=== PATIENT | female | born 1975 | race Caucasian/White ===

== ENCOUNTER 2019-01-01 11:19 | Observation (INO) | payer OTHER ==
[2019-01-01] MEDS ORDERED: Sodium Chloride 0.9% 1,000 ML IV ONE ×2 (11:25→13:18)
[2019-01-01] MEDS ORDERED: Ondansetron 4 MG/2 ML SDV IVPUSH ONE (11:28)
[2019-01-01] MEDS ORDERED: Ketorolac 30 MG/ML SDV IVPUSH ONE (12:00)
--- NOTE | 2019-01-01 12:00 | EDM.PDOC ---
<Chun Gallego - Last Filed: 01/01/19 13:20> ED HPI GENERAL MEDICAL PROBLEM - General Chief Complaint: Abdominal Pain Stated Complaint: abdominal pain Time Seen by Provider: 01/01/19 11:21 - History of Present Illness INITIAL COMMENTS - FREE TEXT/NARRATIVE: 43 y/o female presenting today for nausea, vomiting. States she started feeling nauseous this morning around 3 am. Denies any hematemesis. No chest pain, but complaining of subcostal pain. No dyspnea or cough. Denies any pelvic pain, dysuria, diarrhea. No new rashes or lower extremity edema. States she has some blood disorder and is taking Eliquis but she does not recall the name of her blood disorder. Denies any illicit drug use. Does Bilateral Upper Abdomen Pain Score (Numeric/FACES): 8 - Related Data Allergies Allergy/AdvReac Type Severity Reaction Status Date / Time codeine Allergy Dizziness Verified 01/01/19 11:27 Home Meds: Home Meds ALPRAZolam [Xanax] 1 mg PO PRN 01/01/19 [History] Apixaban [Eliquis] 5 mg PO DAILY 01/01/19 [History] Diltiazem HCl [Diltiazem ER] 180 mg PO DAILY 01/01/19 [History] Losartan/Hydrochlorothiazide [Losartan-HCTZ 100-25 MG] 1 tab PO DAILY 01/01/19 [ History] Past Medical History Cardiovascular History: Reports: Hypertension Gastrointestinal History: Reports: None Musculoskeletal History: Reports: None Other Hematologic History: Pt states "I have a blood disorder but they don't know what it is" - Past Surgical History Cardiovascular Surgical History: Reports: None GI Surgical History: Reports: Other (See Below) Other GI Surgeries/Procedures: Gastric Bypass Musculoskeletal Surgical History: Reports: Other (See Below) Other Musculoskeletal Surgeries/Procedures:: Left ACL repair Social & Family History - Family History Family Medical History: Noncontributory - Tobacco Use Smoking Status *Q: Current Every Day Smoker Years of Tobacco use: 20 Packs/Tins Daily: 1 - Caffeine Use Caffeine Use: Reports: Coffee - Recreational Drug Use Recreational Drug Use: No ED ROS GENERAL - Review of Systems Review Of Systems: ROS reveals no pertinent complaints other than HPI. ED EXAM, GI/ABD - Physical Exam Exam: See Below General Appearance: Alert, WD/WN, Anxious Throat/Mouth: Other (dry mucous membranes) Respiratory/Chest: No Respiratory Distress, Lungs Clear, Normal Breath Sounds, Chest Non-Tender Cardiovascular: Normal Peripheral Pulses, Regular Rate, Rhythm GI/Abdominal Exam: Normal Bowel Sounds, Soft, Other (epigastric pain, negative mccarthy's, no rebound) Back Exam: No: CVA Tenderness (L), CVA Tenderness (R) Extremities: Normal Inspection, No Pedal Edema Neurological: Alert, Oriented Course - Vital Signs Text/Narrative:: gave 1 L NS, toradol 30 mg IM once. Labs show elevated lipase 1999. Will give another 1 L NS. Gave Morphine 2mg IV once. Discussed case with Dr. Alexandra who has accepted the patient for admission. Last Recorded V/S: Last Vital Signs Temp 35.8 C 01/01/19 11:29 Pulse 63 01/01/19 12:49 Resp 17 01/01/19 12:49 BP 157/94 H 01/01/19 12:49 Pulse Ox 95 01/01/19 12:49 - Orders/Labs/Meds Orders: Active Orders 24 hr Category Date Time Status Admission Status [Patient Status] [ADT] Stat ADT 01/01/19 13:19 Active EKG Documentation Completion [RC] STAT Care 01/01/19 11:26 Active CREATINE KINASE,CK [CHEM] Stat Lab 01/01/19 13:06 Ordered GLYCOSYLATED HEMOGLOBIN,HGBA1C [CHEM] Stat Lab 01/01/19 13:13 Ordered MAGNESIUM [CHEM] Stat Lab 01/01/19 13:13 Ordered Sodium Chloride 0.9% [Normal Saline] 1,000 ml Med 01/01/19 13:18 Active IV STAT Medication Orders Sodium Chloride (Normal Saline) 1,000 mls @ 999 mls/hr IV STAT ONE Stop: 01/01/19 14:18 Labs: Laboratory Tests 01/01/19 01/01/19 01/01/19 Range/Units 11:40 11:40 11:40 WBC 10.53 (4.0-11.0) K/uL RBC 5.23 (4.30-5.90) M/uL Hgb 17.4 H (12.0-16.0) g/dL Hct 50.3 H (36.0-46.0) % MCV 96.2 (80.0-98.0) fL MCH 33.3 H (27.0-32.0) pg MCHC 34.6 (31.0-37.0) g/dL RDW Std Deviation 53.0 (28.0-62.0) fl RDW Coeff of Marah 15 (11.0-15.0) % Plt Count 214 (150-400) K/uL MPV 10.30 (7.40-12.00) fL Neut % (Auto) 69.3 (48.0-80.0) % Lymph % (Auto) 22.7 (16.0-40.0) % [place] % (Auto) 5.8 (0.0-15.0) % Eos % (Auto) 1.9 (0.0-7.0) % Baso % (Auto) 0.3 (0.0-1.5) % Neut # (Auto) 7.3 H (1.4-5.7) K/uL Lymph # (Auto) 2.4 (0.6-2.4) K/uL [place] # (Auto) 0.6 (0.0-0.8) K/uL Eos # (Auto) 0.2 (0.0-0.7) K/uL Baso # (Auto) 0.0 (0.0-0.1) K/uL Nucleated RBC % 0.0 /100WBC Nucleated RBCs # 0 K/uL Sodium (136-145) mmol/L Potassium (3.5-5.1) mmol/L Chloride (98-107) mmol/L Carbon Dioxide (21.0-32.0) mmol/L BUN (7.0-18.0) mg/dL Creatinine (0.6-1.0) mg/dL Est Cr Clr Drug Dosing mL/min Estimated GFR (MDRD) ml/min Glucose (74-106) mg/dL Calcium (8.5-10.1) mg/dL Total Bilirubin (0.2-1.0) mg/dL AST (15-37) IU/L ALT (14-63) IU/L Alkaline Phosphatase (46-116) U/L Troponin I (0.000-0.056) ng/mL Total Protein (6.4-8.2) g/dL Albumin (3.4-5.0) g/dL Globulin (2.6-4.0) g/dL Albumin/Globulin Ratio (0.9-1.6) Lipase (73-393) U/L TSH 3rd Generation (0.36-3.74) uIU/mL Urine Color DARK YELLOW Urine Appearance CLEAR Urine pH 7.5 (5.0-8.0) Ur Specific [place] 1.015 (1.001-1.035) Urine Protein TRACE H (NEGATIVE) mg/dL Urine Glucose (UA) NEGATIVE (NEGATIVE) mg/dL Urine Ketones NEGATIVE (NEGATIVE) mg/dL Urine Occult Blood TRACE-LYSED H (NEGATIVE) Urine Nitrite NEGATIVE (NEGATIVE) Urine Bilirubin NEGATIVE (NEGATIVE) Urine Urobilinogen 0.2 (<2.0) EU/dL Ur Leukocyte Esterase NEGATIVE (NEGATIVE) Urine RBC 3-5 (0-2/HPF) Urine WBC 0-3 (0-5/HPF) Ur Epithelial Cells MODERATE (NONE-FEW) Urine Bacteria 1+ H (NEGATIVE) Urine HCG, Qual NEGATIVE (NEGATIVE) Urine Opiates Screen (NEGATIVE) Ur Oxycodone Screen (NEGATIVE) Urine Methadone Screen (NEGATIVE) Ur Barbiturates Screen (NEGATIVE) Ur Phencyclidine Scrn (NEGATIVE) Ur Amphetamine Screen (NEGATIVE) U Methamphetamines Scrn (NEGATIVE) U Benzodiazepines Scrn (NEGATIVE) U Cocaine Metab Screen (NEGATIVE) U Marijuana (THC) Screen (NEGATIVE) Ethyl Alcohol mg/dL 01/01/19 01/01/19 01/01/19 Range/Units 11:40 11:40 11:40 WBC (4.0-11.0) K/uL RBC (4.30-5.90) M/uL Hgb (12.0-16.0) g/dL Hct (36.0-46.0) % MCV (80.0-98.0) fL MCH (27.0-32.0) pg MCHC (31.0-37.0) g/dL RDW Std Deviation (28.0-62.0) fl RDW Coeff of Marah (11.0-15.0) % Plt Count (150-400) K/uL MPV (7.40-12.00) fL Neut % (Auto) (48.0-80.0) % Lymph % (Auto) (16.0-40.0) % [place] % (Auto) (0.0-15.0) % Eos % (Auto) (0.0-7.0) % Baso % (Auto) (0.0-1.5) % Neut # (Auto) (1.4-5.7) K/uL Lymph # (Auto) (0.6-2.4) K/uL [place] # (Auto) (0.0-0.8) K/uL Eos # (Auto) (0.0-0.7) K/uL Baso # (Auto) (0.0-0.1) K/uL Nucleated RBC % /100WBC Nucleated RBCs # K/uL Sodium 138 (136-145) mmol/L Potassium 3.6 (3.5-5.1) mmol/L Chloride 102 (98-107) mmol/L Carbon Dioxide 24.6 (21.0-32.0) mmol/L BUN 9 (7.0-18.0) mg/dL Creatinine 0.8 (0.6-1.0) mg/dL Est Cr Clr Drug Dosing 94.76 mL/min Estimated GFR (MDRD) > 60.0 ml/min Glucose 130 H (74-106) mg/dL Calcium 9.0 (8.5-10.1) mg/dL Total Bilirubin 0.6 (0.2-1.0) mg/dL AST 22 (15-37) IU/L ALT 22 (14-63) IU/L Alkaline Phosphatase 80 (46-116) U/L Troponin I < 0.050 (0.000-0.056) ng/mL Total Protein 7.9 (6.4-8.2) g/dL Albumin 3.9 (3.4-5.0) g/dL Globulin 4.0 (2.6-4.0) g/dL Albumin/Globulin Ratio 1.0 (0.9-1.6) Lipase 2261 H (73-393) U/L TSH 3rd Generation 2.12 (0.36-3.74) uIU/mL Urine Color Urine Appearance Urine pH (5.0-8.0) Ur Specific [place] (1.001-1.035) Urine Protein (NEGATIVE) mg/dL Urine Glucose (UA) (NEGATIVE) mg/dL Urine Ketones (NEGATIVE) mg/dL Urine Occult Blood (NEGATIVE) Urine Nitrite (NEGATIVE) Urine Bilirubin (NEGATIVE) Urine Urobilinogen (<2.0) EU/dL Ur Leukocyte Esterase (NEGATIVE) Urine RBC (0-2/HPF) Urine WBC (0-5/HPF) Ur Epithelial Cells (NONE-FEW) Urine Bacteria (NEGATIVE) Urine HCG, Qual (NEGATIVE) Urine Opiates Screen NEGATIVE (NEGATIVE) Ur Oxycodone Screen NEGATIVE (NEGATIVE) Urine Methadone Screen NEGATIVE (NEGATIVE) Ur Barbiturates Screen NEGATIVE (NEGATIVE) Ur Phencyclidine Scrn NEGATIVE (NEGATIVE) Ur Amphetamine Screen POSITIVE (NEGATIVE) U Methamphetamines Scrn NEGATIVE (NEGATIVE) U Benzodiazepines Scrn NEGATIVE (NEGATIVE) U Cocaine Metab Screen NEGATIVE (NEGATIVE) U Marijuana (THC) Screen NEGATIVE (NEGATIVE) Ethyl Alcohol <3 mg/dL Meds: Medications Generic Name Dose Route Start Last Admin Trade Name Freq PRN Reason Stop Dose Admin Sodium Chloride 1,000 mls @ 999 mls/hr 01/01/19 13:18 Normal Saline IV 01/01/19 14:18 STAT ONE Discontinued Medications Generic Name Dose Route Start Last Admin Trade Name Freq PRN Reason Stop Dose Admin Sodium Chloride 1,000 mls @ 999 mls/hr 01/01/19 11:25 01/01/19 11:52 Normal Saline IV 01/01/19 12:25 999 mls/hr STAT ONE Administration Ketorolac Tromethamine 30 mg 01/01/19 12:00 01/01/19 12:18 Toradol IVPUSH 01/01/19 12:01 30 mg ONETIME ONE Administration Morphine Sulfate 2 mg 01/01/19 13:14 Morphine IVPUSH 01/01/19 13:15 ONETIME ONE Ondansetron HCl 4 mg 01/01/19 11:28 01/01/19 11:52 Zofran IVPUSH 01/01/19 11:29 4 mg ONETIME ONE Administration Departure - Departure Time of Disposition: 13:23 Disposition: Refer to Observation Clinical Impression: Pancreatitis - Discharge Information *PRESCRIPTION DRUG MONITORING PROGRAM REVIEWED*: Not Applicable *COPY OF PRESCRIPTION DRUG MONITORING REPORT IN PATIENT ANGELA: Not Applicable Referrals: PCP,None [Primary Care Provider] - Forms: ED Department Discharge <Carolyn Villagran - Last Filed: 01/01/19 13:28> ED HPI GENERAL MEDICAL PROBLEM - History of Present Illness INITIAL COMMENTS - FREE TEXT/NARRATIVE: The second Sparkle dictating addendum note as I am the supervising physician on this case. I agree with history and physical as above and on my personal evaluation she does not have any discrete tenderness in the upper abdominal areas on deep palpation and is very soft but she does make a face and say that is uncomfortable. She is an obese female but there is no surgical rebound or guarding. She says she only had 2 alcoholic drinks yesterday and drank a lot of water and she denies any food intolerance. She has a very odd a fact on my questioning and seems somewhat annoyed with my questions. Her vital signs were noted by me and the workup was discussed. She is not sure of the blood disorder that she has for which she needs to take liquids on a daily basis. On visual inspection aside from the patient with demeanor as described in the prior sentence she has telangiectasia on her cheeks and has an overall brad appearance to her face. Mucosa is slightly tacky. We will follow-up workup as ordered and disposition pending those results. All testing results have been reviewed and they have been discussed by the resident with the patient. She says that she has taken phentermine which would explain her drug screen. Case was discussed with Dr. Alexandra who agrees with observation admission for pancreatitis and does not want a CT scan at this time. Impression pancreatitis ED ROS GENERAL - Review of Systems Review Of Systems: ROS reveals no pertinent complaints other than HPI. ED EXAM, GI/ABD - Physical Exam Exam: See Below (see Dictation) Departure - Departure Condition: Good
[2019-01-01 12:34] LABS: CHLORIDE,CL 102 mmol/L (98-107); SODIUM,NA 138 mmol/L (136-145)
[2019-01-01] MEDS ORDERED: Morphine 2 MG/ML Syringe IVPUSH ONE (13:14)
--- NOTE | 2019-01-01 13:21 | CR ---
Indication: Chest pain and shortness of breath Technique: Chest 2 views Comparison: None Findings: Cardiovascular and mediastinum: Heart size and vasculature are normal in caliber and appearance. Lungs and pleural spaces: Lungs are clear. No sign of infiltrate or mass. No sign of pleural effusion. No pneumothorax. Bones and soft tissues: No significant findings. Impression: No acute or significant findings. Dictated by Benson Sherman MD @ Jan 01 2019 1:19PM Signed by Dr. Benson Sherman @ Jan 01 2019 1:20PM
[2019-01-01 13:43] LABS: HEMOGLOBIN A1C 5.7 % (4.5-6.2)
[2019-01-01] MEDS ORDERED: Morphine 4 MG/ML Syringe IVPUSH PRN (13:54)
[2019-01-01] MEDS ORDERED: Ondansetron 4 MG/2 ML SDV IVPUSH PRN (13:55)
[2019-01-01] MEDS ORDERED: Sodium Chloride 0.9% 1,000 ML IV SCH ×3 (14:00→15:45)
[2019-01-01] MEDS: HYDROmorphone 1 MG/ML Syringe IVPUSH PRN ×4 (14:47→21:56)
--- NOTE | 2019-01-01 14:54 | PCM.HP ---
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 She report this pain started this morning around 0300. She denies fevers or chills, no chest pain or SOB. No urinary symptoms or diarrhea. She reports drinking alcohol last night, 1 and 12 [place] hard lemonades , otherwise she doesn't drink often. She reports having her gallbladder, no history of gallstones or infections. She reports she had pancreatitis in the past with similar workup and they were unsure of why it happened. At time she is very open with history other times she seems distant and not willing to talk. Reports a lot of her health troubles could be stemming from mold infestation in her home in [place]. She also had gastric bypass in [place], but continues to have issues with obesity since. In the ED Hgb 17.4, platelets 214/ BMP WNL. Troponin negative. Lipase 2261. CXR negative. She was given NS 2 L bolus in the ED. BP elevated slightly at 140-150/ 90s. She was given Morphine for pain and Zofran for nausea. Will be admitted for acute pancreatitis. PCP, Dr Ledesma. Bilateral Upper Abdomen Pain Score (Numeric/FACES): 8 - Related Data Allergies/Adverse Reactions: Allergies Allergy/AdvReac Type Severity Reaction Status Date / Time codeine Allergy Dizziness Verified 01/01/19 11:27 Home Medications: Home Meds ALPRAZolam [Xanax] 1 mg PO PRN 01/01/19 [History] Apixaban [Eliquis] 5 mg PO DAILY 01/01/19 [History] Diltiazem HCl [Diltiazem ER] 180 mg PO DAILY 01/01/19 [History] Losartan/Hydrochlorothiazide [Losartan-HCTZ 100-25 MG] 1 tab PO DAILY 01/01/19 [ History] Past Medical History Cardiovascular History: Reports: Hypertension. Denies: Blood Clots/VTE/DVT, CAD , High Cholesterol, MD Respiratory History: Denies: COPD, PE Gastrointestinal History: Reports: None Musculoskeletal History: Reports: None Endocrine/Metabolic History: Reports: Obesity/BMI 30+. Denies: Diabetes, Type II Other Hematologic History: Leukoclastic vasculitis - Past Surgical History Cardiovascular Surgical History: Reports: None GI Surgical History: Reports: Other (See Below) Other GI Surgeries/Procedures: Gastric Bypass Musculoskeletal Surgical History: Reports: Other (See Below) Other Musculoskeletal Surgeries/Procedures:: Left ACL repair Social & Family History - Family History Family Medical History: Noncontributory - Tobacco Use Smoking Status *Q: Current Every Day Smoker Years of Tobacco use: 20 Packs/Tins Daily: 1 - Caffeine Use Caffeine Use: Reports: Coffee - Alcohol Use Alcohol Use Frequency: Rarely, Socially - Recreational Drug Use Recreational Drug Use: No H&P Review of Systems - Review of Systems: Review Of Systems: See Below General: Denies: Fever, Chills, Malaise HEENT: Reports: No Symptoms. Denies: Headaches, Sinus Congestion Pulmonary: Reports: No Symptoms. Denies: Shortness of Breath Cardiovascular: Reports: No Symptoms. Denies: Chest Pain, Edema, Lightheadedness Gastrointestinal: Reports: Abdominal Pain (radiates to back, back hurts worse), Decreased Appetite, Nausea, Vomiting. Denies: Black Stool, Bloody Stool, Diarrhea, Melena Genitourinary: Reports: Flank Pain. Denies: Dysuria, Frequency, Burning Skin: Reports: No Symptoms Psychiatric: Reports: No Symptoms Neurological: Reports: No Symptoms Hematologic/Lymphatic: Reports: No Symptoms Immunologic: Reports: No Symptoms Exam - Exam Exam: See Below - Vital Signs Vital Signs: Last Vital Signs Temp 96.4 F 01/01/19 11:29 Pulse 62 01/01/19 13:47 Resp 18 01/01/19 13:47 BP 148/93 H 01/01/19 13:47 Pulse Ox 98 01/01/19 13:47 Weight: 122.47 kg - Exam General: Alert, Oriented, Cooperative Lungs: Clear to Auscultation, Normal Respiratory Effort Cardiovascular: Regular Rate, Regular Rhythm, Normal S1, Normal S2 GI/Abdominal Exam: Normal Bowel Sounds, Soft, Tender (mild flank tenderness, no epigastric pain. rpeorts all over discomfort) Extremities: Normal Inspection, Normal Range of Motion, Non-Tender, Pedal Edema (+1 pitting edema BLE, chronic) Neurological: Cranial Nerves Intact Neuro Extensive - Mental Status: Alert, Oriented x3, Normal Mood/Affect Neuro Extensive - Motor, Sensory, Reflexes: CN II-XII Intact Psychiatric: Alert, Normal Affect, Normal Mood - Patient Data Lab Results Last 24 hrs: Laboratory Results - last 24 hr 01/01/19 01/01/19 01/01/19 Range/Units 11:40 11:40 11:40 WBC 10.53 (4.0-11.0) K/uL RBC 5.23 (4.30-5.90) M/uL Hgb 17.4 H (12.0-16.0) g/dL Hct 50.3 H (36.0-46.0) % MCV 96.2 (80.0-98.0) fL MCH 33.3 H (27.0-32.0) pg MCHC 34.6 (31.0-37.0) g/dL RDW Std Deviation 53.0 (28.0-62.0) fl RDW Coeff of Marah 15 (11.0-15.0) % Plt Count 214 (150-400) K/uL MPV 10.30 (7.40-12.00) fL Neut % (Auto) 69.3 (48.0-80.0) % Lymph % (Auto) 22.7 (16.0-40.0) % [place] % (Auto) 5.8 (0.0-15.0) % Eos % (Auto) 1.9 (0.0-7.0) % Baso % (Auto) 0.3 (0.0-1.5) % Neut # (Auto) 7.3 H (1.4-5.7) K/uL Lymph # (Auto) 2.4 (0.6-2.4) K/uL [place] # (Auto) 0.6 (0.0-0.8) K/uL Eos # (Auto) 0.2 (0.0-0.7) K/uL Baso # (Auto) 0.0 (0.0-0.1) K/uL Nucleated RBC % 0.0 /100WBC Nucleated RBCs # 0 K/uL Sodium (136-145) mmol/L Potassium (3.5-5.1) mmol/L Chloride (98-107) mmol/L Carbon Dioxide (21.0-32.0) mmol/L BUN (7.0-18.0) mg/dL Creatinine (0.6-1.0) mg/dL Est Cr Clr Drug Dosing mL/min Estimated GFR (MDRD) ml/min Glucose (74-106) mg/dL Hemoglobin A1c (4.5-6.2) % Calcium (8.5-10.1) mg/dL Magnesium (1.8-2.4) mg/dL Total Bilirubin (0.2-1.0) mg/dL AST (15-37) IU/L ALT (14-63) IU/L Alkaline Phosphatase (46-116) U/L Creatine Kinase (26-308) U/L Troponin I (0.000-0.056) ng/mL Total Protein (6.4-8.2) g/dL Albumin (3.4-5.0) g/dL Globulin (2.6-4.0) g/dL Albumin/Globulin Ratio (0.9-1.6) Triglycerides (0-200) mg/dL Cholesterol (50-200) mg/dL LDL Cholesterol, Calc (60-180) mg/dL VLDL Cholesterol (5-55) mg/dL HDL Cholesterol (40-60) mg/dL Cholesterol/HDL Ratio (3.3-6.0) Lipase (73-393) U/L TSH 3rd Generation (0.36-3.74) uIU/mL Urine Color DARK YELLOW Urine Appearance CLEAR Urine pH 7.5 (5.0-8.0) Ur Specific [place] 1.015 (1.001-1.035) Urine Protein TRACE H (NEGATIVE) mg/dL Urine Glucose (UA) NEGATIVE (NEGATIVE) mg/dL Urine Ketones NEGATIVE (NEGATIVE) mg/dL Urine Occult Blood TRACE-LYSED H (NEGATIVE) Urine Nitrite NEGATIVE (NEGATIVE) Urine Bilirubin NEGATIVE (NEGATIVE) Urine Urobilinogen 0.2 (<2.0) EU/dL Ur Leukocyte Esterase NEGATIVE (NEGATIVE) Urine RBC 3-5 (0-2/HPF) Urine WBC 0-3 (0-5/HPF) Ur Epithelial Cells MODERATE (NONE-FEW) Urine Bacteria 1+ H (NEGATIVE) Urine HCG, Qual NEGATIVE (NEGATIVE) Urine Opiates Screen (NEGATIVE) Ur Oxycodone Screen (NEGATIVE) Urine Methadone Screen (NEGATIVE) Ur Barbiturates Screen (NEGATIVE) Ur Phencyclidine Scrn (NEGATIVE) Ur Amphetamine Screen (NEGATIVE) U Methamphetamines Scrn (NEGATIVE) U Benzodiazepines Scrn (NEGATIVE) U Cocaine Metab Screen (NEGATIVE) U Marijuana (THC) Screen (NEGATIVE) Ethyl Alcohol mg/dL 01/01/19 01/01/19 01/01/19 Range/Units 11:40 11:40 11:40 WBC (4.0-11.0) K/uL RBC (4.30-5.90) M/uL Hgb (12.0-16.0) g/dL Hct (36.0-46.0) % MCV (80.0-98.0) fL MCH (27.0-32.0) pg MCHC (31.0-37.0) g/dL RDW Std Deviation (28.0-62.0) fl RDW Coeff of [place] (11.0-15.0) % Plt Count (150-400) K/uL MPV (7.40-12.00) fL Neut % (Auto) (48.0-80.0) % Lymph % (Auto) (16.0-40.0) % [place] % (Auto) (0.0-15.0) % Eos % (Auto) (0.0-7.0) % Baso % (Auto) (0.0-1.5) % Neut # (Auto) (1.4-5.7) K/uL Lymph # (Auto) (0.6-2.4) K/uL [place] # (Auto) (0.0-0.8) K/uL Eos # (Auto) (0.0-0.7) K/uL Baso # (Auto) (0.0-0.1) K/uL Nucleated RBC % /100WBC Nucleated RBCs # K/uL Sodium 138 (136-145) mmol/L Potassium 3.6 (3.5-5.1) mmol/L Chloride 102 (98-107) mmol/L Carbon Dioxide 24.6 (21.0-32.0) mmol/L BUN 9 (7.0-18.0) mg/dL Creatinine 0.8 (0.6-1.0) mg/dL Est Cr Clr Drug Dosing 94.76 mL/min Estimated GFR (MDRD) > 60.0 ml/min Glucose 130 H (74-106) mg/dL Hemoglobin A1c (4.5-6.2) % Calcium 9.0 (8.5-10.1) mg/dL Magnesium (1.8-2.4) mg/dL Total Bilirubin 0.6 (0.2-1.0) mg/dL AST 22 (15-37) IU/L ALT 22 (14-63) IU/L Alkaline Phosphatase 80 (46-116) U/L Creatine Kinase (26-308) U/L Troponin I < 0.050 (0.000-0.056) ng/mL Total Protein 7.9 (6.4-8.2) g/dL Albumin 3.9 (3.4-5.0) g/dL Globulin 4.0 (2.6-4.0) g/dL Albumin/Globulin Ratio 1.0 (0.9-1.6) Triglycerides (0-200) mg/dL Cholesterol (50-200) mg/dL LDL Cholesterol, Calc (60-180) mg/dL VLDL Cholesterol (5-55) mg/dL HDL Cholesterol (40-60) mg/dL Cholesterol/HDL Ratio (3.3-6.0) Lipase 2261 H (73-393) U/L TSH 3rd Generation 2.12 (0.36-3.74) uIU/mL Urine Color Urine Appearance Urine pH (5.0-8.0) Ur Specific [place] (1.001-1.035) Urine Protein (NEGATIVE) mg/dL Urine Glucose (UA) (NEGATIVE) mg/dL Urine Ketones (NEGATIVE) mg/dL Urine Occult Blood (NEGATIVE) Urine Nitrite (NEGATIVE) Urine Bilirubin (NEGATIVE) Urine Urobilinogen (<2.0) EU/dL Ur Leukocyte Esterase (NEGATIVE) Urine RBC (0-2/HPF) Urine WBC (0-5/HPF) Ur Epithelial Cells (NONE-FEW) Urine Bacteria (NEGATIVE) Urine HCG, Qual (NEGATIVE) Urine Opiates Screen NEGATIVE (NEGATIVE) Ur Oxycodone Screen NEGATIVE (NEGATIVE) Urine Methadone Screen NEGATIVE (NEGATIVE) Ur Barbiturates Screen NEGATIVE (NEGATIVE) Ur Phencyclidine Scrn NEGATIVE (NEGATIVE) Ur Amphetamine Screen POSITIVE (NEGATIVE) U Methamphetamines Scrn NEGATIVE (NEGATIVE) U Benzodiazepines Scrn NEGATIVE (NEGATIVE) U Cocaine Metab Screen NEGATIVE (NEGATIVE) U Marijuana (THC) Screen NEGATIVE (NEGATIVE) Ethyl Alcohol <3 mg/dL 01/01/19 01/01/19 01/01/19 Range/Units 11:40 11:40 11:40 WBC (4.0-11.0) K/uL RBC (4.30-5.90) M/uL Hgb (12.0-16.0) g/dL Hct (36.0-46.0) % MCV (80.0-98.0) fL MCH (27.0-32.0) pg MCHC (31.0-37.0) g/dL RDW Std Deviation (28.0-62.0) fl RDW Coeff of [place] (11.0-15.0) % Plt Count (150-400) K/uL MPV (7.40-12.00) fL Neut % (Auto) (48.0-80.0) % Lymph % (Auto) (16.0-40.0) % [place] % (Auto) (0.0-15.0) % Eos % (Auto) (0.0-7.0) % Baso % (Auto) (0.0-1.5) % Neut # (Auto) (1.4-5.7) K/uL Lymph # (Auto) (0.6-2.4) K/uL [place] # (Auto) (0.0-0.8) K/uL Eos # (Auto) (0.0-0.7) K/uL Baso # (Auto) (0.0-0.1) K/uL Nucleated RBC % /100WBC Nucleated RBCs # K/uL Sodium (136-145) mmol/L Potassium (3.5-5.1) mmol/L Chloride (98-107) mmol/L Carbon Dioxide (21.0-32.0) mmol/L BUN (7.0-18.0) mg/dL Creatinine (0.6-1.0) mg/dL Est Cr Clr Drug Dosing mL/min Estimated GFR (MDRD) ml/min Glucose (74-106) mg/dL Hemoglobin A1c 5.7 (4.5-6.2) % Calcium (8.5-10.1) mg/dL Magnesium 1.9 (1.8-2.4) mg/dL Total Bilirubin (0.2-1.0) mg/dL AST (15-37) IU/L ALT (14-63) IU/L Alkaline Phosphatase (46-116) U/L Creatine Kinase 80 (26-308) U/L Troponin I (0.000-0.056) ng/mL Total Protein (6.4-8.2) g/dL Albumin (3.4-5.0) g/dL Globulin (2.6-4.0) g/dL Albumin/Globulin Ratio (0.9-1.6) Triglycerides (0-200) mg/dL Cholesterol (50-200) mg/dL LDL Cholesterol, Calc (60-180) mg/dL VLDL Cholesterol (5-55) mg/dL HDL Cholesterol (40-60) mg/dL Cholesterol/HDL Ratio (3.3-6.0) Lipase (73-393) U/L TSH 3rd Generation (0.36-3.74) uIU/mL Urine Color Urine Appearance Urine pH (5.0-8.0) Ur Specific [place] (1.001-1.035) Urine Protein (NEGATIVE) mg/dL Urine Glucose (UA) (NEGATIVE) mg/dL Urine Ketones (NEGATIVE) mg/dL Urine Occult Blood (NEGATIVE) Urine Nitrite (NEGATIVE) Urine Bilirubin (NEGATIVE) Urine Urobilinogen (<2.0) EU/dL Ur Leukocyte Esterase (NEGATIVE) Urine RBC (0-2/HPF) Urine WBC (0-5/HPF) Ur Epithelial Cells (NONE-FEW) Urine Bacteria (NEGATIVE) Urine HCG, Qual (NEGATIVE) Urine Opiates Screen (NEGATIVE) Ur Oxycodone Screen (NEGATIVE) Urine Methadone Screen (NEGATIVE) Ur Barbiturates Screen (NEGATIVE) Ur Phencyclidine Scrn (NEGATIVE) Ur Amphetamine Screen (NEGATIVE) U Methamphetamines Scrn (NEGATIVE) U Benzodiazepines Scrn (NEGATIVE) U Cocaine Metab Screen (NEGATIVE) U Marijuana (THC) Screen (NEGATIVE) Ethyl Alcohol mg/dL 01/01/19 Range/Units 11:40 WBC (4.0-11.0) K/uL RBC (4.30-5.90) M/uL Hgb (12.0-16.0) g/dL Hct (36.0-46.0) % MCV (80.0-98.0) fL MCH (27.0-32.0) pg MCHC (31.0-37.0) g/dL RDW Std Deviation (28.0-62.0) fl RDW Coeff of [place] (11.0-15.0) % Plt Count (150-400) K/uL MPV (7.40-12.00) fL Neut % (Auto) (48.0-80.0) % Lymph % (Auto) (16.0-40.0) % [place] % (Auto) (0.0-15.0) % Eos % (Auto) (0.0-7.0) % Baso % (Auto) (0.0-1.5) % Neut # (Auto) (1.4-5.7) K/uL Lymph # (Auto) (0.6-2.4) K/uL [place] # (Auto) (0.0-0.8) K/uL Eos # (Auto) (0.0-0.7) K/uL Baso # (Auto) (0.0-0.1) K/uL Nucleated RBC % /100WBC Nucleated RBCs # K/uL Sodium (136-145) mmol/L Potassium (3.5-5.1) mmol/L Chloride (98-107) mmol/L Carbon Dioxide (21.0-32.0) mmol/L BUN (7.0-18.0) mg/dL Creatinine (0.6-1.0) mg/dL Est Cr Clr Drug Dosing mL/min Estimated GFR (MDRD) ml/min Glucose (74-106) mg/dL Hemoglobin A1c (4.5-6.2) % Calcium (8.5-10.1) mg/dL Magnesium (1.8-2.4) mg/dL Total Bilirubin (0.2-1.0) mg/dL AST (15-37) IU/L ALT (14-63) IU/L Alkaline Phosphatase (46-116) U/L Creatine Kinase (26-308) U/L Troponin I (0.000-0.056) ng/mL Total Protein (6.4-8.2) g/dL Albumin (3.4-5.0) g/dL Globulin (2.6-4.0) g/dL Albumin/Globulin Ratio (0.9-1.6) Triglycerides 78 (0-200) mg/dL Cholesterol 134 (50-200) mg/dL LDL Cholesterol, Calc 59 L (60-180) mg/dL VLDL Cholesterol 15 (5-55) mg/dL HDL Cholesterol 59 (40-60) mg/dL Cholesterol/HDL Ratio 2.3 L (3.3-6.0) Lipase (73-393) U/L TSH 3rd Generation (0.36-3.74) uIU/mL Urine Color Urine Appearance Urine pH (5.0-8.0) Ur Specific [place] (1.001-1.035) Urine Protein (NEGATIVE) mg/dL Urine Glucose (UA) (NEGATIVE) mg/dL Urine Ketones (NEGATIVE) mg/dL Urine Occult Blood (NEGATIVE) Urine Nitrite (NEGATIVE) Urine Bilirubin (NEGATIVE) Urine Urobilinogen (<2.0) EU/dL Ur Leukocyte Esterase (NEGATIVE) Urine RBC (0-2/HPF) Urine WBC (0-5/HPF) Ur Epithelial Cells (NONE-FEW) Urine Bacteria (NEGATIVE) Urine HCG, Qual (NEGATIVE) Urine Opiates Screen (NEGATIVE) Ur Oxycodone Screen (NEGATIVE) Urine Methadone Screen (NEGATIVE) Ur Barbiturates Screen (NEGATIVE) Ur Phencyclidine Scrn (NEGATIVE) Ur Amphetamine Screen (NEGATIVE) U Methamphetamines Scrn (NEGATIVE) U Benzodiazepines Scrn (NEGATIVE) U Cocaine Metab Screen (NEGATIVE) U Marijuana (THC) Screen (NEGATIVE) Ethyl Alcohol mg/dL Result Diagrams: 01/01/19 11:40 01/01/19 11:40 - Problem List (1) Pancreatitis SNOMED Code(s): 12956892 ICD Code: K85.90 - ACUTE PANCREATITIS WITHOUT NECROSIS OR INFECTION, UNSP Status: Acute Current Visit: Yes Qualifiers: Chronicity: acute Pancreatitis type: idiopathic Acute pancreatitis complication: no infection or necrosis Qualified Code(s): K85.00 - Idiopathic acute pancreatitis without necrosis or infection (2) HTN (hypertension) SNOMED Code(s): 69449776 ICD Code: I10 - ESSENTIAL (PRIMARY) HYPERTENSION Status: Chronic Current Visit: Yes (3) Vasculitis determined by biopsy of skin SNOMED Code(s): 39596794, 206023913 ICD Code: I77.6 - ARTERITIS, UNSPECIFIED Status: Chronic Current Visit: Yes (4) Hx of gastric bypass SNOMED Code(s): 669152802 ICD Code: Z98.84 - BARIATRIC SURGERY STATUS Status: Chronic Current Visit : Yes (5) Smoker SNOMED Code(s): 68241366 ICD Code: F17.200 - NICOTINE DEPENDENCE, UNSPECIFIED, UNCOMPLICATED Status : Chronic Current Visit: Yes Problem List Initiated/Reviewed/Updated: Yes Orders Last 24hrs: Active Orders 24 hr Category Date Time Status Admission Status [Patient Status] [ADT] Stat ADT 01/01/19 13:19 Active EKG Documentation Completion [RC] STAT Care 01/01/19 11:26 Active Intake and Output [RC] QSHIFT Care 01/01/19 13:53 Active May Shower [RC] ASDIRECTED Care 01/01/19 13:52 Active Oxygen Therapy [RC] PRN Care 01/01/19 13:52 Active Up With Assistance [RC] ASDIRECTED Care 01/01/19 13:52 Active VTE/DVT Education [RC] PER UNIT ROUTINE Care 01/01/19 13:52 Active Vital Signs [RC] Q4H Care 01/01/19 13:52 Active NPO [Nothing Per Oral Diet] [DIET] Diet 01/01/19 Lunch Active Abdomen Comp [US] Urgent Exams 01/01/19 13:55 Ordered CBC WITH AUTO DIFF [HEME] AM Lab 01/02/19 05:11 Ordered CBC WITH AUTO DIFF [HEME] AM Lab 01/03/19 05:11 Ordered CBC WITH AUTO DIFF [HEME] AM Lab 01/04/19 05:11 Ordered COMPREHENSIVE METABOLIC PN,CMP [CHEM] AM Lab 01/02/19 05:11 Ordered COMPREHENSIVE METABOLIC PN,CMP [CHEM] AM Lab 01/03/19 05:11 Ordered COMPREHENSIVE METABOLIC PN,CMP [CHEM] AM Lab 01/04/19 05:11 Ordered LIPASE [CHEM] AM Lab 01/02/19 05:11 Ordered Apixaban [Eliquis] Med 01/01/19 21:00 Ordered 5 mg PO BID HYDROmorphone [Dilaudid] Med 01/01/19 14:17 Ordered 0.5 mg IVPUSH Q2H PRN Ondansetron [Zofran] Med 01/01/19 13:55 Active 4 mg IVPUSH Q4H PRN Sodium Chloride 0.9% [Normal Saline] 1,000 ml Med 01/01/19 14:27 Ordered IV ASDIRECTED Sodium Chloride 0.9% [Normal Saline] 1,000 ml Med 01/01/19 14:00 Active IV BOLUS Resuscitation Status Routine Resus Stat 01/01/19 13:52 Ordered Medication Orders Apixaban (Eliquis) 5 mg PO BID CECILIA Hydromorphone HCl (Dilaudid) 0.5 mg IVPUSH Q2H PRN PRN Reason: Pain Sodium Chloride (Normal Saline) 1,000 mls @ 999 mls/hr IV BOLUS CECILIA Sodium Chloride (Normal Saline) 1,000 mls @ 175 mls/hr IV ASDIRECTED CECILIA Ondansetron HCl (Zofran) 4 mg IVPUSH Q4H PRN PRN Reason: Nausea Assessment/Plan Comment:: This 43 year old female admitted with acute pancreatitis 1. Acute pancreatitis: Doesn't drink alcohol much. Triglycerides WNL. Will obtain RUQ US to rule out cholelithiasis. Give 1 more liter of NS now, total of 3 L since arrival to ED. Then NS 175. Monitor. Reports Morphine makes abdominal pain worse, will change to Dilaudid 0.5 mg and Zofran for nausea PRN. Repeat labwork in am. Bowel rest. UA positive for amphetamines, reports taking phentermine for weight loss. Last time she took this was Friday. Consider drug induced, recently restarted taking HCTZ for HTN. 2. Vasculitis: Continue Eliquis with sip of water BID. Monitor. 3. HTN: Stable currently. Will monitor. Hold oral medications for now. VTE prophylaxis: Eliquis Dispo: 2-3 days pending improvement.
[2019-01-01] MEDS: Sodium Chloride 0.9% 1,000 ML IV SCH ×2 (16:46→22:04)
--- NOTE | 2019-01-01 17:19 | US ---
INDICATION: Pancreatitis evaluate for stones. Right upper quadrant ultrasound. No comparison studies are available Findings: 1.9 cm hypoechoic area near the pancreatic head is nonspecific and could represent possible pseudocyst this study pancreatitis. Correlation with CT scan would be recommended. Gallbladder is without stones or wall thickening. Gallbladder wall measures 1 mm. Right kidney measures 9.5 cm and appears unremarkable. Left kidney measures 11.9 cm is unremarkable. Increased echogenicity of the liver reflecting fatty liver. Proximal abdominal aorta is nonaneurysmal. Impression : 1. No findings for cholelithiasis. 2. Hypoechoic 1.9 centimeter area near the pancreatic head is nonspecific could represent a possible small pseudocyst in setting of pancreatitis. Correlation CT scan would be recommended. 3. Fatty liver. Dictated by Ramona Ardon MD @ Jan 01 2019 5:13PM Signed by Dr. Ramona Ardon @ Jan 01 2019 5:18PM
[2019-01-01] MEDS: Apixaban 5 MG Tab PO SCH (20:05)
[2019-01-02] MEDS: HYDROmorphone 1 MG/ML Syringe IVPUSH PRN ×7 (00:03→13:31)
[2019-01-02] MEDS: Sodium Chloride 0.9% 1,000 ML IV SCH ×2 (03:59→09:30)
[2019-01-02 06:48] LABS: CHLORIDE,CL 103 mmol/L (98-107); SODIUM,NA 137 mmol/L (136-145)
[2019-01-02] MEDS: Apixaban 5 MG Tab PO SCH (08:43)
--- NOTE | 2019-01-02 13:09 | PCM.PN ---
- General Info Date of Service: 01/02/19 - Review of Systems Systems Review Comment:: patient reports abdominal pain has improved - Patient Data Vitals - Most Recent: Last Vital Signs Temp 36.0 C 01/02/19 08:00 Pulse 84 01/02/19 08:00 Resp 16 01/02/19 08:00 BP 141/84 H 01/02/19 08:00 Pulse Ox 97 01/02/19 08:00 Weight - Most Recent: 122.47 kg I&O - Last 24 Hours: Intake & Output 01/01/19 01/02/19 01/02/19 22:59 06:59 14:59 Intake Total 999 2617 Output Total 650 650 Balance 349 1967 Lab Results Last 24 Hours: Laboratory Results - last 24 hr 01/01/19 01/01/19 01/01/19 Range/Units 11:40 11:40 11:40 WBC (4.0-11.0) K/uL RBC (4.30-5.90) M/uL Hgb (12.0-16.0) g/dL Hct (36.0-46.0) % MCV (80.0-98.0) fL MCH (27.0-32.0) pg MCHC (31.0-37.0) g/dL RDW Std Deviation (28.0-62.0) fl RDW Coeff of Marah (11.0-15.0) % Plt Count (150-400) K/uL MPV (7.40-12.00) fL Neut % (Auto) (48.0-80.0) % Lymph % (Auto) (16.0-40.0) % [place] % (Auto) (0.0-15.0) % Eos % (Auto) (0.0-7.0) % Baso % (Auto) (0.0-1.5) % Neut # (Auto) (1.4-5.7) K/uL Lymph # (Auto) (0.6-2.4) K/uL [place] # (Auto) (0.0-0.8) K/uL Eos # (Auto) (0.0-0.7) K/uL Baso # (Auto) (0.0-0.1) K/uL Nucleated RBC % /100WBC Nucleated RBCs # K/uL Sodium (136-145) mmol/L Potassium (3.5-5.1) mmol/L Chloride (98-107) mmol/L Carbon Dioxide (21.0-32.0) mmol/L BUN (7.0-18.0) mg/dL Creatinine (0.6-1.0) mg/dL Est Cr Clr Drug Dosing mL/min Estimated GFR (MDRD) ml/min Glucose (74-106) mg/dL Hemoglobin A1c 5.7 (4.5-6.2) % Calcium (8.5-10.1) mg/dL Magnesium 1.9 (1.8-2.4) mg/dL Total Bilirubin (0.2-1.0) mg/dL AST (15-37) IU/L ALT (14-63) IU/L Alkaline Phosphatase (46-116) U/L Creatine Kinase 80 (26-308) U/L Total Protein (6.4-8.2) g/dL Albumin (3.4-5.0) g/dL Globulin (2.6-4.0) g/dL Albumin/Globulin Ratio (0.9-1.6) Triglycerides (0-200) mg/dL Cholesterol (50-200) mg/dL LDL Cholesterol, Calc (60-180) mg/dL VLDL Cholesterol (5-55) mg/dL HDL Cholesterol (40-60) mg/dL Cholesterol/HDL Ratio (3.3-6.0) Lipase (73-393) U/L 01/01/19 01/02/19 01/02/19 Range/Units 11:40 05:59 05:59 WBC 12.36 H (4.0-11.0) K/uL RBC 5.00 (4.30-5.90) M/uL Hgb 16.4 H (12.0-16.0) g/dL Hct 49.3 H (36.0-46.0) % MCV 98.6 H (80.0-98.0) fL MCH 32.8 H (27.0-32.0) pg MCHC 33.3 (31.0-37.0) g/dL RDW Std Deviation 53.6 (28.0-62.0) fl RDW Coeff of Marah 15 (11.0-15.0) % Plt Count 157 (150-400) K/uL MPV 10.70 (7.40-12.00) fL Neut % (Auto) 78.2 (48.0-80.0) % Lymph % (Auto) 14.1 L (16.0-40.0) % [place] % (Auto) 6.1 (0.0-15.0) % Eos % (Auto) 1.5 (0.0-7.0) % Baso % (Auto) 0.1 (0.0-1.5) % Neut # (Auto) 9.7 H (1.4-5.7) K/uL Lymph # (Auto) 1.7 (0.6-2.4) K/uL [place] # (Auto) 0.8 (0.0-0.8) K/uL Eos # (Auto) 0.2 (0.0-0.7) K/uL Baso # (Auto) 0.0 (0.0-0.1) K/uL Nucleated RBC % 0.0 /100WBC Nucleated RBCs # 0 K/uL Sodium 137 (136-145) mmol/L Potassium 3.9 (3.5-5.1) mmol/L Chloride 103 (98-107) mmol/L Carbon Dioxide 28.9 (21.0-32.0) mmol/L BUN 7 (7.0-18.0) mg/dL Creatinine 0.6 (0.6-1.0) mg/dL Est Cr Clr Drug Dosing 126.35 mL/min Estimated GFR (MDRD) > 60.0 ml/min Glucose 101 (74-106) mg/dL Hemoglobin A1c (4.5-6.2) % Calcium 7.9 L (8.5-10.1) mg/dL Magnesium (1.8-2.4) mg/dL Total Bilirubin 0.7 (0.2-1.0) mg/dL AST 15 (15-37) IU/L ALT 14 (14-63) IU/L Alkaline Phosphatase 67 (46-116) U/L Creatine Kinase (26-308) U/L Total Protein 6.3 L (6.4-8.2) g/dL Albumin 3.0 L (3.4-5.0) g/dL Globulin 3.3 (2.6-4.0) g/dL Albumin/Globulin Ratio 0.9 (0.9-1.6) Triglycerides 78 (0-200) mg/dL Cholesterol 134 (50-200) mg/dL LDL Cholesterol, Calc 59 L (60-180) mg/dL VLDL Cholesterol 15 (5-55) mg/dL HDL Cholesterol 59 (40-60) mg/dL Cholesterol/HDL Ratio 2.3 L (3.3-6.0) Lipase 1032 H (73-393) U/L Med Orders - Current: Current Medications Apixaban (Eliquis) 5 mg PO BID [facility] Last Admin: 01/02/19 08:43 Dose: 5 mg Hydromorphone HCl (Dilaudid) 0.5 mg IVPUSH Q2H PRN PRN Reason: Pain Last Admin: 01/02/19 11:06 Dose: 0.5 mg Sodium Chloride (Normal Saline) 1,000 mls @ 175 mls/hr IV ASDIRECTED [facility] Last Admin: 01/02/19 09:30 Dose: 175 mls/hr Ondansetron HCl (Zofran) 4 mg IVPUSH Q4H PRN PRN Reason: Nausea Last Admin: 01/01/19 21:56 Dose: 4 mg Discontinued Medications Sodium Chloride (Normal Saline) 1,000 mls @ 999 mls/hr IV STAT ONE Stop: 01/01/19 12:25 Last Admin: 01/01/19 11:52 Dose: 999 mls/hr Sodium Chloride (Normal Saline) 1,000 mls @ 999 mls/hr IV STAT ONE Stop: 01/01/19 14:18 Last Admin: 01/01/19 13:44 Dose: 999 mls/hr Sodium Chloride (Normal Saline) 1,000 mls @ 999 mls/hr IV BOLUS [facility] Sodium Chloride (Normal Saline) 1,000 mls @ 200 mls/hr IV ASDIRECTED [facility] Sodium Chloride (Normal Saline) 1,000 mls @ 999 mls/hr IV BOLUS [facility] Stop: 01/01/19 16:46 Last Admin: 01/01/19 15:45 Dose: 999 mls/hr Ketorolac Tromethamine (Toradol) 30 mg IVPUSH ONETIME ONE Stop: 01/01/19 12:01 Last Admin: 01/01/19 12:18 Dose: 30 mg Morphine Sulfate (Morphine) 2 mg IVPUSH ONETIME ONE Stop: 01/01/19 13:15 Last Admin: 01/01/19 13:45 Dose: 2 mg Morphine Sulfate (Morphine) 3 mg IVPUSH Q3H PRN PRN Reason: Pain Ondansetron HCl (Zofran) 4 mg IVPUSH ONETIME ONE Stop: 01/01/19 11:29 Last Admin: 01/01/19 11:52 Dose: 4 mg - Exam General: Alert, Oriented Neck: Supple Lungs: Clear to Auscultation, Normal Respiratory Effort Cardiovascular: Regular Rate, Regular Rhythm GI/Abdominal Exam: Soft, Non-Tender, No Distention Extremities: Non-Tender, No Pedal Edema Skin: Warm, Dry, Intact Neurological: No New Focal Deficit - Problem List Review Problem List Initiated/Reviewed/Updated: Yes - My Orders Last 24 Hours: My Active Orders 01/02/19 Dinner Clear Liquid Diet [DIET] - Plan Plan:: This 43 year old female admitted with acute pancreatitis. Patient is eager for discharge. Will start clear liquid diet and if she tolerates oral diet will discharge home.
--- NOTE | 2019-01-02 13:28 | PCM.DCSUM1 ---
Discharge Summary - Discharge Data Discharge Disposition: Home, Self-Care 01 Condition: Fair - Discharge Plan *PRESCRIPTION DRUG MONITORING PROGRAM REVIEWED*: Not Applicable *COPY OF PRESCRIPTION DRUG MONITORING REPORT IN PATIENT ANGELA: Not Applicable Home Medications: Home Meds ALPRAZolam [Xanax] 1 mg PO BEDTIME PRN 01/01/19 [History] Apixaban [Eliquis] 5 mg PO DAILY 01/01/19 [History] Diltiazem HCl [Diltiazem ER] 180 mg PO DAILY 01/01/19 [History] Losartan/Hydrochlorothiazide [Losartan-HCTZ 100-25 MG] 1 tab PO DAILY 01/01/19 [ History] Patient Handouts: Smoking Tobacco Information, Adult, Acute Pancreatitis, Easy- to-Read, Vasculitis, Hypertension, [id number] Referrals: Hung Ledesma MD [Physician] - - Patient Data Vitals - Most Recent: Last Vital Signs Temp 36.0 C 01/02/19 08:00 Pulse 84 01/02/19 08:00 Resp 16 01/02/19 08:00 BP 141/84 H 01/02/19 08:00 Pulse Ox 97 01/02/19 08:00 Weight - Most Recent: 122.47 kg I&O - Last 24 hours: Intake & Output 01/01/19 01/02/19 01/02/19 22:59 06:59 14:59 Intake Total 999 2617 Output Total 650 650 Balance 349 5701 Lab Results - Last 24 hrs: Laboratory Results - last 24 hr 01/01/19 01/01/19 01/01/19 Range/Units 11:40 11:40 11:40 WBC (4.0-11.0) K/uL RBC (4.30-5.90) M/uL Hgb (12.0-16.0) g/dL Hct (36.0-46.0) % MCV (80.0-98.0) fL MCH (27.0-32.0) pg MCHC (31.0-37.0) g/dL RDW Std Deviation (28.0-62.0) fl RDW Coeff of Marah (11.0-15.0) % Plt Count (150-400) K/uL MPV (7.40-12.00) fL Neut % (Auto) (48.0-80.0) % Lymph % (Auto) (16.0-40.0) % [place] % (Auto) (0.0-15.0) % Eos % (Auto) (0.0-7.0) % Baso % (Auto) (0.0-1.5) % Neut # (Auto) (1.4-5.7) K/uL Lymph # (Auto) (0.6-2.4) K/uL [place] # (Auto) (0.0-0.8) K/uL Eos # (Auto) (0.0-0.7) K/uL Baso # (Auto) (0.0-0.1) K/uL Nucleated RBC % /100WBC Nucleated RBCs # K/uL Sodium (136-145) mmol/L Potassium (3.5-5.1) mmol/L Chloride (98-107) mmol/L Carbon Dioxide (21.0-32.0) mmol/L BUN (7.0-18.0) mg/dL Creatinine (0.6-1.0) mg/dL Est Cr Clr Drug Dosing mL/min Estimated GFR (MDRD) ml/min Glucose (74-106) mg/dL Hemoglobin A1c 5.7 (4.5-6.2) % Calcium (8.5-10.1) mg/dL Magnesium 1.9 (1.8-2.4) mg/dL Total Bilirubin (0.2-1.0) mg/dL AST (15-37) IU/L ALT (14-63) IU/L Alkaline Phosphatase (46-116) U/L Creatine Kinase 80 (26-308) U/L Total Protein (6.4-8.2) g/dL Albumin (3.4-5.0) g/dL Globulin (2.6-4.0) g/dL Albumin/Globulin Ratio (0.9-1.6) Triglycerides (0-200) mg/dL Cholesterol (50-200) mg/dL LDL Cholesterol, Calc (60-180) mg/dL VLDL Cholesterol (5-55) mg/dL HDL Cholesterol (40-60) mg/dL Cholesterol/HDL Ratio (3.3-6.0) Lipase (73-393) U/L 07/05/19 07/06/19 07/06/19 Range/Units 11:40 05:59 05:59 WBC 12.36 H (4.0-11.0) K/uL RBC 5.00 (4.30-5.90) M/uL Hgb 16.4 H (12.0-16.0) g/dL Hct 49.3 H (36.0-46.0) % MCV 98.6 H (80.0-98.0) fL MCH 32.8 H (27.0-32.0) pg MCHC 33.3 (31.0-37.0) g/dL RDW Std Deviation 53.6 (28.0-62.0) fl RDW Coeff of Marah 15 (11.0-15.0) % Plt Count 157 (150-400) K/uL MPV 10.70 (7.40-12.00) fL Neut % (Auto) 78.2 (48.0-80.0) % Lymph % (Auto) 14.1 L (16.0-40.0) % [place] % (Auto) 6.1 (0.0-15.0) % Eos % (Auto) 1.5 (0.0-7.0) % Baso % (Auto) 0.1 (0.0-1.5) % Neut # (Auto) 9.7 H (1.4-5.7) K/uL Lymph # (Auto) 1.7 (0.6-2.4) K/uL [place] # (Auto) 0.8 (0.0-0.8) K/uL Eos # (Auto) 0.2 (0.0-0.7) K/uL Baso # (Auto) 0.0 (0.0-0.1) K/uL Nucleated RBC % 0.0 /100WBC Nucleated RBCs # 0 K/uL Sodium 137 (136-145) mmol/L Potassium 3.9 (3.5-5.1) mmol/L Chloride 103 (98-107) mmol/L Carbon Dioxide 28.9 (21.0-32.0) mmol/L BUN 7 (7.0-18.0) mg/dL Creatinine 0.6 (0.6-1.0) mg/dL Est Cr Clr Drug Dosing 126.35 mL/min Estimated GFR (MDRD) > 60.0 ml/min Glucose 101 (74-106) mg/dL Hemoglobin A1c (4.5-6.2) % Calcium 7.9 L (8.5-10.1) mg/dL Magnesium (1.8-2.4) mg/dL Total Bilirubin 0.7 (0.2-1.0) mg/dL AST 15 (15-37) IU/L ALT 14 (14-63) IU/L Alkaline Phosphatase 67 (46-116) U/L Creatine Kinase (26-308) U/L Total Protein 6.3 L (6.4-8.2) g/dL Albumin 3.0 L (3.4-5.0) g/dL Globulin 3.3 (2.6-4.0) g/dL Albumin/Globulin Ratio 0.9 (0.9-1.6) Triglycerides 78 (0-200) mg/dL Cholesterol 134 (50-200) mg/dL LDL Cholesterol, Calc 59 L (60-180) mg/dL VLDL Cholesterol 15 (5-55) mg/dL HDL Cholesterol 59 (40-60) mg/dL Cholesterol/HDL Ratio 2.3 L (3.3-6.0) Lipase 1032 H (73-393) U/L Med Orders - Current: Current Medications Apixaban (Eliquis) 5 mg PO BID [facility] Last Admin: 01/02/19 08:43 Dose: 5 mg Hydromorphone HCl (Dilaudid) 0.5 mg IVPUSH Q2H PRN PRN Reason: Pain Last Admin: 01/02/19 11:06 Dose: 0.5 mg Sodium Chloride (Normal Saline) 1,000 mls @ 175 mls/hr IV ASDIRECTED [facility] Last Admin: 01/02/19 09:30 Dose: 175 mls/hr Ondansetron HCl (Zofran) 4 mg IVPUSH Q4H PRN PRN Reason: Nausea Last Admin: 01/01/19 21:56 Dose: 4 mg Discontinued Medications Sodium Chloride (Normal Saline) 1,000 mls @ 999 mls/hr IV STAT ONE Stop: 01/01/19 12:25 Last Admin: 01/01/19 11:52 Dose: 999 mls/hr Sodium Chloride (Normal Saline) 1,000 mls @ 999 mls/hr IV STAT ONE Stop: 01/01/19 14:18 Last Admin: 01/01/19 13:44 Dose: 999 mls/hr Sodium Chloride (Normal Saline) 1,000 mls @ 999 mls/hr IV BOLUS [facility] Sodium Chloride (Normal Saline) 1,000 mls @ 200 mls/hr IV ASDIRECTED [facility] Sodium Chloride (Normal Saline) 1,000 mls @ 999 mls/hr IV BOLUS [facility] Stop: 01/01/19 16:46 Last Admin: 01/01/19 15:45 Dose: 999 mls/hr Ketorolac Tromethamine (Toradol) 30 mg IVPUSH ONETIME ONE Stop: 01/01/19 12:01 Last Admin: 01/01/19 12:18 Dose: 30 mg Morphine Sulfate (Morphine) 2 mg IVPUSH ONETIME ONE Stop: 01/01/19 13:15 Last Admin: 01/01/19 13:45 Dose: 2 mg Morphine Sulfate (Morphine) 3 mg IVPUSH Q3H PRN PRN Reason: Pain Ondansetron HCl (Zofran) 4 mg IVPUSH ONETIME ONE Stop: 01/01/19 11:29 Last Admin: 01/01/19 11:52 Dose: 4 mg
== END 2019-01-02 16:00 | disposition home or self-care (01) ==
LOC: MW.ED 11:19 → MW.MS 13:19 → UNDOADMOB 13:32 → MW.MS 13:32
PROVIDERS: ADMIT Internal Medicine; ATTEND Internal Medicine
DX: K85.00 Idiopathic acute pancreatitis without necrosis or infection (principal); I10 Essential (primary) hypertension; I77.6 Arteritis, unspecified; F17.210 Nicotine dependence, cigarettes, uncomplicated; E66.9 Obesity, unspecified; Z68.39 Body mass index [BMI] 39.0-39.9, adult; Z98.84 Bariatric surgery status; Z88.5 Allergy status to narcotic agent; Z79.01 Long term (current) use of anticoagulants; Z79.899 Other long term (current) drug therapy
CPT/HCPCS: 36415; 71046; 76700; 80053; 80061; 80305; 81001; 81025; 82550; 83036; 83690; 83735; 84443; 84484; 85025; 93005; 96361; 96374; 96375; 99285; A9270; G0480; J1170; J1885; J2270; J2405; J7040